=== PATIENT | male | born 1980 | race Caucasian/White ===

== ENCOUNTER → 2019-04-20 | Outpatient (CLI) | payer OTHER ==
[~2019-04-20] MED LIST: ATOR10 PO; CYCL10 PO; HYDACE5 PO; IBUP800 PO; LISI5 PO; Novolog100 UNIT/2; OMEP20ER PO; OXYACE5T PO; TAMS.4ER PO; TOUJEO SOL300 UNIT/1 SQ; Zantac150 MG PO
== END | disposition home or self-care (01) ==
LOC: LAB EV 07:30
DX: R10.13 Epigastric pain (principal)
CPT/HCPCS: 87338

== ENCOUNTER → 2022-01-08 | Outpatient (CLI) | payer OTHER | END | disposition home or self-care (01) | LOC: LAB SHORT 11:06 → PLD 11:06 | DX: L82.1 Other seborrheic keratosis (principal) | CPT/HCPCS: 88305 ==

== ENCOUNTER → 2022-07-25 | Outpatient (CLI) | payer OTHER | END | disposition home or self-care (01) | LOC: LAB SHORT 16:20 → LAB 16:20 | DX: Z30.8 Encounter for other contraceptive management (principal) ==